=== PATIENT | female | born 2000 | race Hispanic/Latino ===

== ENCOUNTER 2019-11-09 06:42 | Emergency (ER) | payer SELFPAY ==
[2019-11-09] MEDS ORDERED: ONDANSETRON HCL 4 MG/2 ML VIAL ONE (07:34)
[2019-11-09] MEDS ORDERED: FAMOTIDINE/PF 20 MG/2 ML VIAL IV ONE (07:35)
[2019-11-09 07:43] LABS: BASOPHILS % (AUTO) 0.2 % (0.0-5.0); EOSINOPHILS % (AUTO) 0.3 % (0.0-8.0); HEMATOCRIT 42.5 % (36-48); LYMPHOCYTES % (AUTO) 17.7 % (21.0-51.0); MEAN CORPUSCULAR HEMOGLOBIN 31.2 pg (27.0-33.0); MEAN CORPUSCULAR HGB CONC 33.6 g/dL (32.0-36.0); MEAN CORPUSCULAR VOLUME 92.8 fL (80-100); MONOCYTES % (AUTO) 6.2 % (3.0-13.0); NEUTROPHILS % (AUTO) 75.3 % (40.0-77.0); PLATELET COUNT (AUTO) 331 K/uL (130-400); RED BLOOD CELL COUNT(AUTO) 4.58 MIL/uL (4.00-5.50); RED CELL DISTRIBUTION WIDTH 12.1 % (11.0-15.5); WHITE BLOOD COUNT (AUTO) 9.1 K/uL (4.8-10.8)
[2019-11-09 07:54] LABS: APPEARANCE,URINE CLEAR (CLEAR); BILIRUBIN,URINE NEGATIVE (NEGATIVE); COLOR,URINE YELLOW (YELLOW); GLUCOSE, URINE (UA) NEGATIVE (NEGATIVE); KETONES,URINE >=80 mg/dL (NEGATIVE); LEUKOCYTE ESTERASE ,URINE NEGATIVE (NEGATIVE); NITRATE,URINE NEGATIVE (NEGATIVE); OCCULT BLOOD,URINE NEGATIVE (NEGATIVE); PH,URINE 5.5 (5.0-8.0); PROTEIN,URINE NEGATIVE (NEGATIVE); UROBILINOGEN,URINE 0.2 mg/dL (0.2-1.0)
[2019-11-09 07:56] LABS: HCG,QUAL RESULT NEGATIVE (NEGATIVE)
[2019-11-09 08:02] LABS: AMPHET/METH SCREEN,URINE NEGATIVE (NEGATIVE); BARBITURATE SCREEN, URINE NEGATIVE (NEGATIVE); BENZODIAZEPINES SCREEN,URINE NEGATIVE (NEGATIVE); CANNABINOID SCREEN,URINE POSITIVE (NEGATIVE); COCAINE SCREEN,URINE NEGATIVE (NEGATIVE); OPIATE SCREEN,URINE POSITIVE (NEGATIVE); PHENCYCLIDINE SCREEN,URINE NEGATIVE (NEGATIVE); RBC,URINE 0-1 /HPF (0-1); WBC,URINE 0-1 /HPF (0-1)
[2019-11-09 08:03] LABS: BACTERIA,URINE Moderate /HPF (None Seen); MUCUS,URINE Few LPF (None Seen); SQUAMOUS EPITHELIAL CELL,UR Moderate /HPF (0-2)
[2019-11-09 08:10] LABS: CREATININE 0.8 mg/dL (0.5-1.5); POTASSIUM 3.4 mmol/L (3.5-5.1)
[2019-11-09 08:16] LABS: ALBUMIN 4.4 g/dL (3.5-5.0); BILIRUBIN,TOTAL 0.6 mg/dL (0.2-1.0); TOTAL PROTEIN, SERUM 7.9 g/dL (6.0-8.3)
[2019-11-09] MEDS ORDERED: 0.9% SODIUM CHLORIDE 1000 ML IV BAG IV ONE (09:14)
== END 2019-11-09 09:59 | disposition home or self-care (01) ==
LOC: EDH 06:42
DX: R10.9 Unspecified abdominal pain (principal); R11.2 Nausea with vomiting, unspecified
CPT/HCPCS: 36415; 80053; 80305; 81001; 81025; 82150; 83690; 85025; 96361; 96374; 96375; 99284; J2405; J3490; J7030

== ENCOUNTER 2021-10-14 09:14 | Inpatient (IN) | payer MEDICAID ==
[~2021-10-14] VITALS: Ht 149.9 cm; Wt 76.7 kg
[2021-10-14] MEDS: OXYTOCIN-LR 20 UNITS/1000 ML 1,000 ML IV SCH (10:45)
[2021-10-14 10:52] LABS: MEAN CORPUSCULAR HEMOGLOBIN 33.4 pg (27.0-33.0); MEAN CORPUSCULAR HGB CONC 35.3 g/dL (32.0-36.0); MEAN CORPUSCULAR VOLUME 94.7 fL (79-99); RED BLOOD CELL COUNT(AUTO) 3.59 MIL/uL (4.00-5.50); RED CELL DISTRIBUTION WIDTH 13.4 % (11.0-15.5); WHITE BLOOD COUNT (AUTO) 8.1 K/uL (4.8-10.8)
[2021-10-14] MEDS ORDERED: AMPICILLIN 1GM+NS 50ML 50 ML IV SCH (11:00)
[2021-10-14] MEDS ORDERED: NALOXONE HCL 0.4 MG/1 ML ML IV PRN (11:00)
[2021-10-14] MEDS ORDERED: EPHEDRINE SULFATE 50 MG/ML AMPULE IVP PRN (11:00)
[2021-10-14] MEDS ORDERED: ROPIVACAINE 0.2% 100ML VIAL 100 ML EP SCH (11:00)
[2021-10-14] MEDS ORDERED: AMPICILLIN 2GM+NS 100ML 100 ML IV SCH (11:00)
[2021-10-14] MEDS ORDERED: LACTATED RINGERS 500 ML 500 ML IV PRN (11:00)
[2021-10-14] MEDS: LACTATED RINGERS 1000ML 1,000 ML IV PRN ×2 (11:05→18:25)
[2021-10-14] MEDS: PROMETHAZINE HCL 25 MG/ML 1ML AMPULE IM PRN (21:52)
[2021-10-14] MEDS: MEPERIDINE-PF 50 MG/ML SYG IVP PRN (21:57)
[2021-10-14] MEDS ORDERED: LIDOCAINE HCL 1% 20 ML VIAL ONE (22:08)
[2021-10-14 23:14] LABS: RAPID PLASMA REAGIN NONREACTIVE (NONREACTIVE)
[2021-10-15] MEDS ORDERED: FENTANYL CITRATE PF 50 MCG/1 ML 2ML VIAL ONE (00:09)
[2021-10-15] MEDS: LACTATED RINGERS 1000ML 1,000 ML IV PRN (02:56)
[2021-10-15] MEDS ORDERED: METHYLERGONOVINE MALEATE 0.2 MG/1 ML ML ONE (10:53)
[2021-10-15] MEDS: MEPERIDINE-PF 50 MG/ML SYG IVP PRN (10:53)
[2021-10-15] MEDS: PROMETHAZINE HCL 25 MG/ML 1ML AMPULE IM PRN (10:53)
[2021-10-15] MEDS ORDERED: MISOPROSTOL 200 MCG TABLET ONE (11:10)
[2021-10-15] MEDS ORDERED: IBUPROFEN 600 MG TABLET ONE (11:14)
[2021-10-15] MEDS: IBUPROFEN 600 MG TABLET PO PRN ×2 (11:17→20:58)
[2021-10-15] MEDS ORDERED: DIPH,PERTUSS(ACELL),TET VAC/PF 0.5 ML VIAL IM PRN (11:30)
[2021-10-15] MEDS ORDERED: ACETAMINOPHEN WITH CODEINE 1 TAB TAB PO PRN (11:30)
[2021-10-15] MEDS ORDERED: ACETAMINOPHEN 325 MG TAB PO PRN (11:30)
[2021-10-15] MEDS ORDERED: MEASLES/MUMPS/RUBELLA VACCINE, LIVE 0.5 ML/VIAL SQ PRN (11:30)
[2021-10-15] MEDS ORDERED: OXYTOCIN-LR 20 UNITS/1000 ML 1,000 ML IV SCH (11:30)
[2021-10-15] MEDS ORDERED: BENZOCAINE/LANOLIN/ALOE VERA 60 ML AEROSOL TP PRN (11:30)
[2021-10-15] MEDS ORDERED: LANOLIN 30GM OINTMENT TP PRN (11:30)
[2021-10-15] MEDS ORDERED: WITCH HAZEL 1 PAD TP PRN (11:30)
[2021-10-15] MEDS: OXYTOCIN-LR 20 UNITS/1000 ML 1,000 ML IV SCH (12:00)
[2021-10-15 13:15] VITALS: BP 121/83
[2021-10-15] MEDS ORDERED: FERR-72 PO (14:26)
[2021-10-15] MEDS ORDERED: PNV#1COM14 PO (14:26)
[2021-10-15 16:00] VITALS: BP 116/75
[2021-10-15 19:24] VITALS: BP 104/71
[2021-10-15] MEDS: DOCUSATE SODIUM 100 MG CAP PO SCH (20:57)
[2021-10-15 23:30] VITALS: BP 104/71
[2021-10-16 01:08] LABS: HEPATITIS Bs ANTIGEN SCREEN P Negative (Negative)
[2021-10-16 03:31] VITALS: BP 100/69
[2021-10-16 07:09] VITALS: BP 104/72
[2021-10-16] MEDS: DOCUSATE SODIUM 100 MG CAP PO SCH (08:12)
[2021-10-16] MEDS: IBUPROFEN 600 MG TABLET PO PRN (08:13)
[2021-10-16 11:20] VITALS: BP 92/55
[2021-10-16] MEDS ORDERED: MEASLES/MUMPS/RUBELLA VACCINE, LIVE 0.5 ML/VIAL SQ ONE ×2 (14:33→15:45)
== END 2021-10-16 15:00 | disposition home or self-care (01) | DRG 560 ==
LOC: EDH 09:14 → OBSVTOIN 09:32 → LDH 09:32 → WSH 10-15 13:12
PROVIDERS: ADMIT Specialist; ATTEND Specialist
PROC: 10E0XZZ Delivery of Products of Conception, External Approach (ICD-10-PCS; principal; 2021-10-15)
PROC: 0W8NXZZ Division of Female Perineum, External Approach (ICD-10-PCS; 2021-10-15)
PROC: 10907ZC Drainage of Amniotic Fluid, Therapeutic from Products of Conception, Via Natural or Artificial Opening (ICD-10-PCS; 2021-10-15)
PROC: 3E0R3BZ Introduction of Anesthetic Agent into Spinal Canal, Percutaneous Approach (ICD-10-PCS; 2021-10-15)
PROC: 00HU33Z Insertion of Infusion Device into Spinal Canal, Percutaneous Approach (ICD-10-PCS; 2021-10-15)
PROC: 3E0234Z Introduction of Serum, Toxoid and Vaccine into Muscle, Percutaneous Approach (ICD-10-PCS; 2021-10-15)
PROC: 3E0134Z Introduction of Serum, Toxoid and Vaccine into Subcutaneous Tissue, Percutaneous Approach (ICD-10-PCS; 2021-10-15)
DX: O34.211 Maternal care for low transverse scar from previous cesarean delivery (principal); Z23 Encounter for immunization; Z37.0 Single live birth; Z3A.38 38 weeks gestation of pregnancy
CPT/HCPCS: 36415; 85027; 86592; 86701; 86850; 86900; 86901; 87340; 87390; 90707; 90715; A4314; G0378; J2175; J2210; J2550; J2590; J2795; J3010; J7120

== ENCOUNTER 2022-07-24 20:11 | Emergency (ER) | payer MEDICAID ==
[~2022-07-24] VITALS: Ht 149.9 cm; Wt 61.2 kg
[~2022-07-24 20:11] MED LIST: FERR-72 PO; PNV#1COM14 PO
[2022-07-24 21:20] LABS: APPEARANCE,URINE CLEAR (CLEAR); BILIRUBIN,URINE NEGATIVE (NEGATIVE); COLOR,URINE YELLOW (YELLOW); GLUCOSE, URINE (UA) NEGATIVE (NEGATIVE); KETONES,URINE 150 mg/dL (NEGATIVE); LEUKOCYTE ESTERASE ,URINE NEGATIVE Leu/uL (NEGATIVE); NITRATE,URINE NEGATIVE (NEGATIVE); OCCULT BLOOD,URINE NEGATIVE (NEGATIVE); PH,URINE 6.5 (5.0-8.0); PROTEIN,URINE 30 mg/dL (NEGATIVE); UROBILINOGEN,URINE 0.2 mg/dL (0.2-1.0)
[2022-07-24 21:29] LABS: BACTERIA,URINE RARE /HPF (None Seen); MUCUS,URINE FEW LPF (None Seen); SQUAMOUS EPITHELIAL CELL,UR MOD /HPF (0-2)
[2022-07-24 21:30] LABS: INFLUENZA TYPE A NEGATIVE FOR TYPE A (NEG)
[2022-07-24 21:32] LABS: INFLUENZA TYPE B NEGATIVE FOR TYPE B (NEG)
[2022-07-24 22:09] LABS: AMPHET/METH SCREEN,URINE NEGATIVE (NEGATIVE); BARBITURATE SCREEN, URINE NEGATIVE (NEGATIVE); BENZODIAZEPINES SCREEN,URINE NEGATIVE (NEGATIVE); COCAINE SCREEN,URINE NEGATIVE (NEGATIVE); PHENCYCLIDINE SCREEN,URINE NEGATIVE (NEGATIVE)
[2022-07-24 22:10] LABS: CANNABINOID SCREEN,URINE POSITIVE (NEGATIVE)
[2022-07-24] MEDS ORDERED: ACETAMINOPHEN 325 MG TAB PO ONE (22:30)
[2022-07-24 23:01] LABS: BASOPHILS % (AUTO) 0.1 % (0.0-5.0); HEMATOCRIT 36.5 % (36-48); LYMPHOCYTES % (AUTO) 5.3 % (21.0-51.0); MEAN CORPUSCULAR HEMOGLOBIN 31.9 pg (27.0-33.0); MEAN CORPUSCULAR HGB CONC 35.3 g/dL (32.0-36.0); MEAN CORPUSCULAR VOLUME 90.1 fL (79-99); MONOCYTES % (AUTO) 4.9 % (3.0-13.0); NEUTROPHILS % (AUTO) 89.4 % (40.0-77.0); PLATELET COUNT (AUTO) 236 K/uL (130-400); RED BLOOD CELL COUNT(AUTO) 4.05 MIL/uL (4.00-5.50); RED CELL DISTRIBUTION WIDTH 12.5 % (11.0-15.5); WHITE BLOOD COUNT (AUTO) 11.1 K/uL (4.8-10.8)
[2022-07-24 23:15] LABS: CREATININE 0.6 mg/dL (0.5-1.5); POTASSIUM 3.1 mmol/L (3.5-5.1)
[2022-07-24 23:20] LABS: ALBUMIN 3.5 g/dL (3.5-5.0)
[2022-07-24] MEDS ORDERED: 0.9%NACL 1000ML IV ONE (23:30)
[2022-07-24] MEDS ORDERED: 0.9%NACL 1000ML 2,500 ML IV ONE (23:30)
[2022-07-25 00:17] VITALS: BP 115/72
== END 2022-07-25 01:21 | disposition home or self-care (01) ==
LOC: EDH 20:11
DX: O98.519 Other viral diseases complicating pregnancy, unspecified trimester (principal); B34.9 Viral infection, unspecified; O99.320 Drug use complicating pregnancy, unspecified trimester; F12.10 Cannabis abuse, uncomplicated; Z20.822 Contact with and (suspected) exposure to COVID-19; Z3A.00 Weeks of gestation of pregnancy not specified
CPT/HCPCS: 99283; 96360; 87635; 80053; 80305; 85025; 87880; 87804 ×2; 36415; 81001; C9803; J7030

== ENCOUNTER 2023-01-10 01:40 | Observation (INO) | payer MEDICAID ==
[~2023-01-10] VITALS: Ht 149.9 cm; Wt 70.3 kg
[2023-01-10 02:16] LABS: APPEARANCE,URINE CLEAR (CLEAR); BILIRUBIN,URINE NEGATIVE (NEGATIVE); GLUCOSE, URINE (UA) NEGATIVE (NEGATIVE); KETONES,URINE NEGATIVE (NEGATIVE); LEUKOCYTE ESTERASE ,URINE NEGATIVE Leu/uL (NEGATIVE); NITRATE,URINE NEGATIVE (NEGATIVE); OCCULT BLOOD,URINE NEGATIVE (NEGATIVE); PH,URINE 6.5 (5.0-8.0); PROTEIN,URINE NEGATIVE (NEGATIVE); UROBILINOGEN,URINE 0.2 mg/dL (0.2-1.0)
[2023-01-10 02:26] LABS: COLOR,URINE Light-Yellow (YELLOW)
[2023-01-10 02:30] VITALS: BP 114/69
[2023-01-10] MEDS ORDERED: LACTATED RINGERS 1000ML 1,000 ML IV SCH (04:00)
== END 2023-01-10 04:10 | disposition home or self-care (01) ==
LOC: EDH 01:40 → LDH 01:41
PROVIDERS: ADMIT Obstetrics & Gynecology; ATTEND Obstetrics & Gynecology
DX: O62.9 Abnormality of forces of labor, unspecified (principal); Z3A.37 37 weeks gestation of pregnancy; Z98.891 History of uterine scar from previous surgery
CPT/HCPCS: 59025; 81003; G0378 ×2; G0379

== ENCOUNTER 2023-05-13 10:19 | Emergency (ER) | payer MEDICAID ==
[~2023-05-13] VITALS: Ht 152.4 cm; Wt 62.1 kg
[2023-05-13] MEDS ORDERED: KETOROLAC 60 MG VIAL (30MG/ML) IM ONE (13:30)
[2023-05-13] MEDS ORDERED: CEFTRIAXONE 1G VIAL IM ONE (13:30)
[2023-05-13] MEDS ORDERED: IBUP-2070 PO (13:32)
[2023-05-13] MEDS ORDERED: ACET-66 PO (13:32)
[2023-05-13] MEDS ORDERED: AMOX1TAB16 PO (13:32)
[2023-05-13 13:58] VITALS: BP 123/75
== END 2023-05-13 14:44 | disposition home or self-care (01) ==
LOC: EDH 10:19
DX: J02.9 Acute pharyngitis, unspecified (principal); Z59.7 Insufficient social insurance and welfare support; Z20.822 Contact with and (suspected) exposure to COVID-19
CPT/HCPCS: 99284; 87635; 96372 ×2; C9803; J0696; J1885

== ENCOUNTER 2024-10-29 15:58 | Emergency (ER) | payer SELFPAY ==
[~2024-10-29] VITALS: Ht 149.9 cm; Wt 59.0 kg
[~2024-10-29 15:58] MED LIST changes: +ACET-66 PO; +AMOX1TAB16 PO; +IBUP-2070 PO
[2024-10-29 17:53] VITALS: O2SAT 99
--- NOTE | 2024-10-29 18:53 | ERN ---
General Chief Complaint: Other Problems Stated Complaint: POSSIBLE MISCARRIAGE Time Seen by MD: 16:04 History of Present Illness Initial Comments 24-year-old female who comes to the , LMP 08/31/2024, presents for requesting an hCG level. Patient had bleeding on 10/22/2024 with cramping after a positive test. She was told of the time that she may be miscarrying. She has had no symptoms since. No vaginal bleeding discharge or pelvic pain or discomfort. She was here to repeat an hCG level to make sure that it was gone away. Allergies: Coded Allergies: No Known Allergies (Unverified Allergy, Unknown, 10/14/21) Home Meds Active Scripts Ibuprofen (Ibuprofen) 600 Mg Tablet, 600 MG PO Q6H PRN for PAIN, #15 TAB Prov:ELISHA MCCULLOUGH 05/13/23 Acetaminophen (Acetaminophen) 500 Mg Tablet, 500 MG PO Q4PRN for 5 Days, #15 TAB Prov:ELISHA MCCULLOUGH 05/13/23 Amoxicillin/Potassium Clav (Amox Tr-K Clv 875-125 mg Tab) 1 Each Tablet, 1 EACH PO BID for 10 Days, #20 TAB Prov:ELISHA MCCULLOUGH 05/13/23 Reported Medications Ferrous Sulfate (Ferrous Sulfate) 325 Mg Tablet, 325 MG PO DAILYLUNCH, TAB 10/15/21 Pnv#75/Iron Fum/FA/Om3/Dha/Epa (One A Day Dha Pack) 1 Each Combo..pkg, 1 EACH PO DAILYLUNCH, COMB.PKG 10/15/21 Past Medical History Past Medical History: No Pertinent History Past Surgical History: None Family History Family History: HTN Social History Social History: Negative Female( History) LMP: Aug 31, 2024 : 3 Para: 2 Aborts: 0 ROS Dictation CONSTITUTIONAL: No chills, no fever, no weakness, no diaphoresis, no malaise. HEAD/FACE: No signs of trauma. EENT: No eye pain, no blurred vision, no tearing, no double vision, no ear pain, no ear discharge, no nose pain, no nasal congestion, no throat pain, no throat swelling, no mouth pain. RESPIRATORY: No cough, no orthopnea, no SOB, no stridor, no wheezing. CARDIOVASCULAR: No chest pain, no edema, no palpitations, no syncope. GASTROINTESTINAL/ABDOMINAL: No abdominal pain, no constipation, no diarrhea, no nausea, no vomiting. GENITOURINARY: No abnormal discharge, no dysuria, no frequent urination, no hematuria. No complaints of pain in the genitals. MUSCULOSKELETAL: No back pain, no gout, no joint pain, no joint swelling, no muscle pain, no muscle stiffness, no neck pain. INTEGUMENTARY: No change in color, no change in hair/nails, no dryness, no lesion, no lumps, no rash. NEUROLOGICAL/PSYCH: No anxiety, not depressed, no emotional problem, no headache, no numbness, no pre-existing deficit, no history of seizures, no tr emors, no weakness. HEMATOLOGIC/LYMPHATIC: Not anemic, no history of blood clots, no apparent bleeding, no bruising, glands not swollen. All Systems Negative, Except as Noted. Physical Exam Physical Exam Dictation VITAL SIGNS: Reviewed. GENERAL APPEARANCE: Alert, oriented x3, no acute distress. HEAD AND FACE: Non-traumatic. EYES: PERRL, pink conjunctivas, eyelid no trauma, anterior chamber clear. EARS: Pinnas intact and no signs of trauma or erythema. Ear canals clear and no discharge. TMs no erythema. NOSE: No discharge, no bleeding. OROPHARYNX: Mouth normal, teeth no caries, tongue pink. Pharynx clear, no erythema. Tonsils no exudates, no abscesses noted. Mucous membrane moist. NECK: Supple, non-tender, no thyromegaly, no masses, no JVD, no bruits. BREAST: Deferred. CHEST: No tenderness, no crepitus, no paradoxical movement, no retractions. LUNGS: Clear, well-ventilated, symmetric, no rales, no wheezing, no rhonchi, no stridor, good breath sounds bilaterally. HEART: Regular rate, regular rhythm, no murmur, no gallops. VASCULAR: No peripheral edema. ABDOMEN: Soft, positive bowel sounds, nondistended, no guarding, nontender, no rebound, no masses no hepatomegaly, no splenomegaly, no Stinson's sign, no h ernias. RECTAL: Deferred. GENITAL: Deferred. NEUROLOGICAL: Normal speech, gross motor function intact, gross sensory functi on intact. MUSCULOSKELETAL: Neck nontender, full range of motion, back nontender, full range of motion. EXTREMITIES: Nontender, full range of motion. SKIN: Color pink, dry, no turgor, no rash, no lacerations, no abrasions, no contusions. LYMPHATICS: Deferred. Results Laboratory and Microbiology Lab and Micro Result Laboratory Tests Test 10/29/24 16:24 Human Chorionic Gonadotropin, Quant 1 mIU/mL (0-5) MDM CC: Request for beta hCG Historian: Patient No comorbidities Patient was concerned that she miscarried She is asymptomatic Your vital signs and stable The beta hCG is a one She had a negative home test Unlikely need this time. No indication for any advanced imaging or any other procedures. We will DC. ED Course Orders Procedure Category Date Status Time Hcg,Quantitative LAB 10/29/24 Complete 16:08 Vital Signs Date Time Temp Pulse Resp B/P (MAP) Pulse Ox O2 Delivery O2 Flow Rate FiO2 10/29/24 18:53 98.4 74 18 110/65 Room Air* 0 21 10/29/24 17:53 74 18 117/68 99 Room Air* 0 21 10/29/24 16:02 98.4 77 20 131/82 DX & DISP Disposition: Discharge Departure Impression: Primary Impression: Miscarriage Condition: Stable Additional Instructions: Your beta hCG level is one. As we discussed, you likely miscarried. Please follow up with your primary doctor as needed. Referrals: HATTIE STEVENSON MD (PCP) ABHIJIT BIRD DO Oct 29, 2024 18:53
[2024-10-29 19:20] VITALS: BP 110/65; PULSE 74; RESP 18; TEMP 98.4
== END 2024-10-29 19:50 | disposition home or self-care (01) ==
LOC: EDH 15:58
DX: O03.9 Complete or unspecified spontaneous abortion without complication (principal); R10.2 Pelvic and perineal pain; Z79.899 Other long term (current) drug therapy
CPT/HCPCS: 36415; 84702; 99283

== ENCOUNTER 2025-10-08 19:14 | Emergency (ER) | payer MEDICAID ==
[~2025-10-08] VITALS: Ht 149.9 cm; Wt 55.8 kg
--- NOTE | 2025-10-08 19:21 | NUR ---
UA CUP PROVIDED
--- NOTE | 2025-10-08 19:36 | ERN ---
ED Note History of Present Illness Stated Complaint: VAGINAL BLEEDING Chief Complaint: Vaginal Bleeding Time Seen by MD: 19:21 Time Seen by Midlevel: 19:35 Dictation: Ms Maravilla is a 25-year-old female with no reported chronic health issues who presented to the emergency department this evening for evaluation of vaginal bleeding. She is [id number] with LMP 08/14/2025 She states that she had a positive home test results two weeks ago. She states that at 1830 she developed lower abdominal/low back pain which she rates 4/10 and had dark red vaginal bleeding with small clots. She states she has used one pad. Last week she states she had frequent urination. She denies fever, chills, shortness of breath, cough, chest pain, palpitations, edema, nausea, vomiting, hematemesis, constipation, diarrhea, melena, hematochezia, flank pain, headache, dizziness, or focal weakness/paresthesia Allergies: Coded Allergies: No Known Allergies (Unverified Allergy, Unknown, 10/14/21) Home Meds Active Scripts Cephalexin (Cephalexin) 500 Mg Tablet, 1 TAB PO BID for 7 Days, #14 TAB 0 Refills Prov:HEMAL COLBY TEXTILE COLORIST FORMULATOR 10/08/25 Ibuprofen (Ibuprofen) 600 Mg Tablet, 600 MG PO Q6H PRN for PAIN, #15 TAB Prov:ELISHA MCCULLOUGH 05/13/23 Acetaminophen (Acetaminophen) 500 Mg Tablet, 500 MG PO Q4PRN for 5 Days, #15 TAB Prov:ELISHA MCCULLOUGH 05/13/23 Amoxicillin/Potassium Clav (Amox Tr-K Clv 875-125 mg Tab) 1 Each Tablet, 1 EACH PO BID for 10 Days, #20 TAB Prov:ELISHA MCCULLOUGH 05/13/23 Reported Medications Ferrous Sulfate (Ferrous Sulfate) 325 Mg Tablet, 325 MG PO DAILYLUNCH, TAB 10/15/21 Pnv#75/Iron Fum/FA/Om3/Dha/Epa (One A Day Dha Pack) 1 Each Combo..pkg, 1 EACH PO DAILYLUNCH, COMB.PKG 10/15/21 Past Medical History Past Medical History: No Pertinent History Surgical History: Family History: HTN Social History: Negative LMP: Aug 14, 2025 : 5 Para: 3 Aborts: 1 RN Note Reviewed/Agreed w/PFSH: Yes Review of System Dictation REVIEW OF SYSTEMS: CONSTITUTIONAL: Patient denies fevers, chills, sweats and weight changes. EYES: Patient denies any visual symptoms. EARS, NOSE, AND THROAT: No difficulties with hearing. No symptoms of rhinitis or sore throat. CARDIOVASCULAR: Patient denies chest pains, palpitations, orthopnea and paroxysmal nocturnal dyspnea. RESPIRATORY: No dyspnea on exertion, no wheezing or cough. GI: No nausea, vomiting, diarrhea, constipation, abdominal pain, hematochezia or melena. Reports lower abdominal cramping : No urinary hesitancy or dribbling. No nocturia. No flank pain. No abnormal urethral discharge. Reports bright dark red vaginal bleeding with small clots that started about 20 minutes prior to coming to the hospital. Denies flank pain. MUSCULOSKELETAL: No myalgias or arthralgias. NEUROLOGIC: No chronic headaches, no seizures. Patient denies numbness, tingling or weakness. PSYCHIATRIC: Patient denies problems with mood disturbance. No problems with anxiety. ENDOCRINE: No excessive urination or excessive thirst. DERMATOLOGIC: Patient denies any rashes or skin changes. Initial Vital Sign VS Vital Signs Date Time Temp Pulse Resp B/P (MAP) Pulse Ox O2 Delivery O2 Flow Rate FiO2 10/08/25 19:18 98.4 98 20 140/81 99 Room Air Physical Exam Dictation Vital signs: Reviewed. Afebrile Constitutional: No acute distress. Slightly anxious Head/Face: Normocephalic, atraumatic. Eyes: Periorbital areas with no swelling, redness, or edema. Lids and lashes are normal. Conjunctival injection is absent. Sclera anicteric. Pupils equal, round, reactive to light. ENT: Pinnas intact and no signs of trauma or erythema. Ear canals clear and no discharge. TMs no erythema. No nasal discharge or bleeding noted. Oropharynx with no exudate, redness, swelling, masses, exudates, or evidence of obstruction. Uvula midline. Mucous membranes moist. Neck: Trachea midline, no masses palpated, and no cervical lymphadenopathy. No swelling. Supple, full range of motion. Chest/Axilla: No tenderness, no crepitus, no paradoxical movement, no retractions. Cardiovascular: Regular rate, regular rhythm, no murmur, no gallops. Symmetric pulses. No peripheral edema. Normotensive Respiratory: Respirations even and unlabored. Lung sounds clear; no wheezes, rales or rhonchi. Room air SpO2 99% Gastrointestinal: Inspection is normal. No distention is appreciated. Bowel sounds are normal. No mass or organomegaly . There is no tenderness. No rebound. No rigidity. No voluntary or involuntary guarding. No Stinson's sign. : Negative CVA tenderness bilaterally Neurological: Normal speech, gross motor function intact, gross sensory function intact. No focal weakness/Paresthesia. Musculoskeletal/Extremities: All extremities have full range of motion, no pain or tenderness on palpation. Symmetric pulses. Integumentary: Intact. Skin is normal color, warm and dry. Cap refill less than 3 seconds. Results (Laboratory/Radiology) Laboratory/Radiology Laboratory Tests Test 10/08/25 19:41 White Blood Count 9.9 K/uL (4.8-10.8) Red Blood Count 4.29 MIL/uL (4.00-5.50) Hemoglobin 14.1 g/dL (12.0-16.0) Hematocrit 41.2 % (36-48) Mean Corpuscular Volume 96.0 fL (79-99) Mean Corpuscular Hemoglobin 32.9 pg (27.0-33.0) Mean Corpuscular Hemoglobin Concent 34.2 g/dL (32.0-36.0) Red Cell Distribution Width 12.8 % (11.0-15.5) Platelet Count 299 K/uL (130-400) Mean Platelet Volume 9.6 fL (7.5-10.5) Immature Granulocyte % (Auto) 0.4 % (0-1) Neutrophils (%) (Auto) 80.6 % (40.0-77.0) H Lymphocytes (%) (Auto) 12.1 % (21.0-51.0) L Monocytes (%) (Auto) 6.1 % (3.0-13.0) Eosinophils (%) (Auto) 0.4 % (0.0-8.0) Basophils (%) (Auto) 0.4 % (0.0-5.0) Neutrophils # (Auto) 8.0 K/uL (1.8-7.7) H Lymphocytes # (Auto) 1.2 K/uL (1.0-4.8) Monocytes # (Auto) 0.6 K/uL (0.1-1.0) Eosinophils # (Auto) 0.04 K/uL (0.00-0.70) Basophils # (Auto) 0.04 K/uL (0.00-0.20) Absolute Immature Granulocyte (auto 0.04 K/uL (0-1) Nucleated Red Blood Cells 0.0 % (0.0-0.19) Urine Color YELLOW (YELLOW) Urine Appearance CLEAR (CLEAR) Urine pH 6.0 (5.0-8.0) Urine Specific [place]son 1.032 (1.001-1.031) Urine Protein 20 mg/dL (NEGATIVE) H Urine Glucose (UA) NEGATIVE mg/dL (NEGATIVE) Urine Ketones 10 mg/dL (NEGATIVE) H Urine Occult Blood LARGE (NEGATIVE) H Urine Nitrate NEGATIVE (NEGATIVE) Urine Bilirubin NEGATIVE mg/dL (NEGATIVE) Urine Urobilinogen 0.2 mg/dL (0.2-1.0) Urine Leukocyte Esterase 25 Astrid/uL (NEGATIVE) H Urine RBC TNTC /HPF (0-1) H Urine WBC 2-5 /HPF (0-1) H Urine Squamous Epithelial Cells FEW /HPF (0-2) Urine Bacteria FEW /HPF (None Seen) Sodium Level 142 mmol/L (136-145) Potassium Level 3.7 mmol/L (3.5-5.1) Chloride Level 104 mmol/L (101-111) Carbon Dioxide Level 29 mmol/L (21-32) Blood Urea Nitrogen 11 mg/dL (7-18) Creatinine 0.8 mg/dL (0.5-1.0) Glomerular Filtration Rate Calc 104 mL/min (>90) Random Glucose 113 mg/dL (70-105) H Total Calcium 9.3 mg/dL (8.5-10.1) Human Chorionic Gonadotropin, Quant 11 mIU/mL (0-5) H Labs Reviewed?: Yes ED Course ED Course Orders Procedure Category Date Status Time Cbc With Differential LAB 10/08/25 Complete 19:32 Basic Metabolic Panel LAB 10/08/25 Complete 19:32 Urinalysis Profile LAB 10/08/25 Complete 19:32 Hcg,Quantitative LAB 10/08/25 Complete 19:32 Us Ob <14 Weeks US 10/08/25 Resulted 19:33 Vital Signs Date Time Temp Pulse Resp B/P (MAP) Pulse Ox O2 Delivery O2 Flow Rate FiO2 10/08/25 19:18 98.4 98 20 140/81 99 Room Air Laboratory findings as noted below. No elevation of WBCs H&H are stable. Quantitative hCG is very low. UA positive for blood (as expected), leukocyte esterase, and UWBC 2-3;UCX pending. The ultrasound shows no intrauterine . Ovaries unremarkable. Uterus is normal size 7.5 by 2.7 x 3.9 cm, retroverted. The endometrium 9 mm. She has vaginal bleeding in early with beta HCG 11 and no intrauterine seen. These findings are consistent with of unknown location. While in the ED she received initial dose cephalexin. Patient was counseled regarding of unknown location, need for repeat quantitative hCG in 48 hours, and ectopic warning signs. Patient verbalized understanding. Cephalexin prescribed for suspected UTI; medication safety in discussed. Patient discharged in stable condition with suspected UTI treated with cephalexin for seven days and of unknown location. Strict ectopic precautions and follow up instructions reviewed. Patient verbalized understanding. Medical Decision Making MDM MDM: Differential diagnosis: of unknown location, very early intrauterine , early loss, UTI, anemia Rationale: Tests considered and ordered secondary to shared decision making include: Lab, ultrasound Previous outside records reviewed: Old ER visits. Risk of complication and/or morbidity or mortality of patient management: None Medications-Per medication reconciliation Need for hospitalization: Patient does not meet criteria for hospitalization. Need for emergency major/minor surgery: No There are no social concerns with this patient. Prescription drug management: OTC Tylenol, cephalexin Prescriptions will include symptomatic care Patient's prior external medical records from other ER visits were reviewed by me as indicated. Prior testing and results from previous visits were reviewed. Prior tests were taken into account with medical decision making and resource utilization, independent historian/historians were used to obtain complete medical history. I independently interpreted the test that were performed, results were reviewed by me and considered findings on radiology if ordered. Medical management and examination interpretation discussions were had by me with other qualified healthcare professionals as indicated for the patient's care. DX & DISP Disposition: Discharge Departure Impression: Primary Impression: , location unknown Additional Impressions: Vaginal bleeding affecting early , Urinary frequency, Suspected urinary tract infection Condition: Stable Scripts Cephalexin (Cephalexin) 500 Mg Tablet 1 TAB PO BID for 7 Days, #14 TAB 0 Refills Prov: HEMAL COLBY 10/08/25 Additional Instructions: Your hormone is very low (11). At this level, it is too early to see a on ultrasound, which is expected. The ultrasound did not show signs of an ectopic , and your ovaries appear normal. Your urine test shows signs of a possible urinary tract infection. At this time, and is not possible to tell if this is an early , and early miscarriage, or less commonly a outside of the uterus (ectopic). Close follow up is very important. You will need to continue the cephalexin twice daily for seven days. This antibiotic is safe and early . You may take Tylenol for pain or cramping. No ibuprofen, naproxen, or other NSAIDs. Avoid alcohol while taking antibiotics. Drink plenty of fluids. Rest as needed. Avoid strenuous activity if bleeding or cramping worsens. You must have a repeat blood hormone test in 48 hours. Follow up with your computer systems technology instructor or primary care provider as soon as possible. Further testing will determine whether the is continuing normally. Return to the emergency department immediately if you have: S evere/worsening lower abdominal or pelvic pain, shoulder pain, dizziness/lightheadedness/fainting, heavy vaginal bleeding (soaking one pad per hour), fever/chills, worsening urinary symptoms despite antibiotics. Referrals: SELF,REFERRAL (PCP) Time of Disposition: 21:21 HEMAL COLBY Oct 08, 2025 19:36
[2025-10-08 19:55] LABS: IMMATURE GRANULOCYTE ABSOLUTE 0.04 K/uL (0-1); NUCLEATED RED BLOOD CELLS 0.0 % (0.0-0.19); PLATELET COUNT (AUTO) 299 K/uL (130-400); RED BLOOD CELL COUNT(AUTO) 4.29 MIL/uL (4.00-5.50); RED CELL DISTRIBUTION WIDTH 12.8 % (11.0-15.5); WHITE BLOOD COUNT (AUTO) 9.9 K/uL (4.8-10.8)
[2025-10-08 20:05] LABS: CREATININE 0.8 mg/dL (0.5-1.0); GLOMERULAR FILTR. RATE CALC 104.0 mL/min (>90); GLUCOSE,RANDOM 113.0 mg/dL (70-105); SODIUM SERUM 142.0 mmol/L (136-145); UREA NITROGEN, BLOOD 11.0 mg/dL (7-18)
[2025-10-08 20:17] LABS: APPEARANCE,URINE CLEAR (CLEAR); GLUCOSE, URINE (UA) NEGATIVE (NEGATIVE); HCG,QUANTITATIVE 11.0 mIU/mL (0-5); LEUKOCYTE ESTERASE ,URINE 25 Leu/uL (NEGATIVE); NITRATE,URINE NEGATIVE (NEGATIVE); OCCULT BLOOD,URINE LARGE (NEGATIVE)
[2025-10-08 20:18] LABS: ADD UA MICROSCOPIC YES
[2025-10-08 20:23] LABS: SQUAMOUS EPITHELIAL CELL,UR FEW /HPF (0-2)
--- NOTE | 2025-10-08 21:21 | HMCIMG ---
EXAMINATION: OB ULTRASOUND LESS THAN 14 WEEKS. CLINICAL HISTORY: Amenorrhea. Vaginal Bleeding. Beta hcG is 11. COMPARISON: None. TECHNIQUE: Grayscale and color ultrasound images were obtained utilizing a transabdominal transducer. FINDINGS: LMP: 08/14/2025, 7 weeks and 6 days. BHARGAV: 05/21/2026. The uterus is retroverted, normal in caliber, and measures 7.5 x 2.7 x 3.9 cm in the craniocaudal, AP, and transverse dimensions, respectively. The endometrium measures approximately 0.9 cm. There is no intrauterine gestation sac seen at present. Cervix appears normal. The right ovary is normal in caliber and measures 2.3 x 1.4 x 1.6 cm. The left ovary is normal in caliber and measures 2.3 x 2.0 x 1.5 cm. There is no free fluid in the cul-de-sac. IMPRESSION: No significant abnormality. No intrauterine gestation sac at present. Recommend serial quantitative beta hcG correlation and follow-up ultrasound. /[facility]
[2025-10-08 23:04] VITALS: BP 138/80; PULSE 68; RESP 19; TEMP 98.4; O2SAT 99
== END 2025-10-08 23:15 | disposition home or self-care (01) ==
LOC: EDH 19:14
DX: O20.9 Hemorrhage in early pregnancy, unspecified (principal); O26.891 Other specified pregnancy related conditions, first trimester; R35.0 Frequency of micturition; Z3A.01 Less than 8 weeks gestation of pregnancy; Z79.899 Other long term (current) drug therapy; Z98.890 Other specified postprocedural states
CPT/HCPCS: 36415; 76801; 80048; 81001; 84702; 85025; 99284

== ENCOUNTER 2025-10-10 15:59 | Emergency (ER) | payer MEDICAID ==
[~2025-10-10] VITALS: Ht 149.9 cm; Wt 67.4 kg
[~2025-10-10 15:59] MED LIST changes: +CEPH500T PO; +IBUP-1492 PO; -IBUP-2070 PO
[2025-10-10 16:25] LABS: IMMATURE GRANULOCYTE ABSOLUTE 0.02 K/uL (0-1); NUCLEATED RED BLOOD CELLS 0.0 % (0.0-0.19); PLATELET COUNT (AUTO) 296 K/uL (130-400); RED BLOOD CELL COUNT(AUTO) 4.38 MIL/uL (4.00-5.50); RED CELL DISTRIBUTION WIDTH 12.8 % (11.0-15.5); WHITE BLOOD COUNT (AUTO) 7.5 K/uL (4.8-10.8)
[2025-10-10 16:27] LABS: APPEARANCE,URINE CLEAR (CLEAR); GLUCOSE, URINE (UA) NEGATIVE (NEGATIVE); LEUKOCYTE ESTERASE ,URINE NEGATIVE Leu/uL (NEGATIVE); NITRATE,URINE NEGATIVE (NEGATIVE); OCCULT BLOOD,URINE NEGATIVE (NEGATIVE)
[2025-10-10 16:28] LABS: ADD UA MICROSCOPIC NO
[2025-10-10 16:29] LABS: HCG,QUALITATIVE URINE NEGATIVE (NEGATIVE)
[2025-10-10 16:34] LABS: CREATININE 0.7 mg/dL (0.5-1.0); GLOMERULAR FILTR. RATE CALC 121.0 mL/min (>90); GLUCOSE,RANDOM 97.0 mg/dL (70-105); SODIUM SERUM 142.0 mmol/L (136-145); UREA NITROGEN, BLOOD 11.0 mg/dL (7-18)
[2025-10-10 16:44] LABS: ASPARTATE AMINOTRANSFERASE 12.0 U/L (10-37); HCG,QUANTITATIVE 2.0 mIU/mL (0-5); TOTAL PROTEIN, SERUM 7.3 g/dL (6.0-8.3)
--- NOTE | 2025-10-10 17:29 | ERN ---
ED Note History of Present Illness Stated Complaint: VAGINAL SPOTTING Chief Complaint: Vaginal Bleeding Time Seen by MD: 16:02 Dictation: 25-year-old female presenting to the emergency department for vaginal spotting patient was here yesterday and had a hCG of 11, patient reports she did pass some blood clots she is Allergies: Coded Allergies: No Known Allergies (Unverified Allergy, Unknown, 10/14/21) Home Meds Active Scripts Cephalexin (Cephalexin) 500 Mg Tablet, 1 TAB PO BID for 7 Days, #14 TAB 0 Refills Prov:HEMAL COLBY PM TECHNICIAN 10/08/25 Ibuprofen (Ibuprofen) 600 Mg Tablet, 600 MG PO Q6H PRN for PAIN, #15 TAB Prov:ELISHA MCCULLOUGH 05/13/23 Acetaminophen (Acetaminophen) 500 Mg Tablet, 500 MG PO Q4PRN for 5 Days, #15 TAB Prov:ELISHA MCCULLOUGH 05/13/23 Amoxicillin/Potassium Clav (Amox Tr-K Clv 875-125 mg Tab) 1 Each Tablet, 1 EACH PO BID for 10 Days, #20 TAB Prov:ELISHA MCCULLOUGH 05/13/23 Reported Medications Ferrous Sulfate (Ferrous Sulfate) 325 Mg Tablet, 325 MG PO DAILYLUNCH, TAB 10/15/21 Pnv#75/Iron Fum/FA/Om3/Dha/Epa (One A Day Dha Pack) 1 Each Combo..pkg, 1 EACH PO DAILYLUNCH, COMB.PKG 10/15/21 Past Medical History Past Medical History: No Pertinent History Surgical History: Family History: HTN Social History: Negative LMP: Aug 14, 2025 : 5 Para: 3 Aborts: 1 Review of System Dictation Constitutional: Negative for fever,chills, and weight loss Eyes: Negative for injury, pain,redness, and discharge ENT: Negative for injury,pain or swelling Cardiovascular: Negative for chest pain, palpitations, and edema Respiratory: Negative for shortness of breath, cough, and wheezing, Abdomen/GI: Negative for abdominal pain, nausea, vomiting, diarrhea, and constipation Back: Negative for injury and pain : Per HPI MS/Extremity: Negative for injury and deformity Skin: Negative for rash, and discoloration Neuro: Negative for headache, weakness, numbness, tingling, and seizure Psych: Negative for suicide ideation, homicidal ideation, and hallucinations Initial Vital Sign VS Vital Signs Date Time Temp Pulse Resp B/P (MAP) Pulse Ox O2 Delivery O2 Flow Rate FiO2 10/10/25 16:01 98.4 84 18 117/81 99 Room Air 0 Physical Exam Dictation General: awake, alert, NAD Head/Face: Normocephalic, atraumatic Eyes: PERRL, EOMI, vision at baseline ENT: oral cavity clear, TMs clear, no signs of infection Neck: Trachea midline, supple, no nuchal rigidity Cardiovascular: RRR, normal S1/S2, No MRGs, no JVD Respiratory: CTAB, no respiratory distress, No rales or wheezes Abdomen: Soft, non-tender, non-distended, normal bowel sounds, no guarding or rebound. Skin: Warm, dry, normal turgor, no rash MS/Extremity: Pulses equal, no cyanosis, neurovascular intact, FROM Neuro: COAx4, GCS 15, strength 5/5, CN 2-12 intact, normal cerebellar exam, normal gait, Psych: Normal behavior, mood, and affect normal Results (Laboratory/Radiology) Laboratory/Radiology Laboratory Tests Test 10/10/25 16:10 10/10/25 16:14 Urine Color LIGHT-YELLOW (YELLOW) Urine Appearance CLEAR (CLEAR) Urine pH 6.0 (5.0-8.0) Urine Specific [place] 1.016 (1.001-1.031) Urine Protein NEGATIVE mg/dL (NEGATIVE) Urine Glucose (UA) NEGATIVE mg/dL (NEGATIVE) Urine Ketones NEGATIVE mg/dL (NEGATIVE) Urine Occult Blood NEGATIVE (NEGATIVE) Urine Nitrate NEGATIVE (NEGATIVE) Urine Bilirubin NEGATIVE mg/dL (NEGATIVE) Urine Urobilinogen 0.2 mg/dL (0.2-1.0) Urine Leukocyte Esterase NEGATIVE [place]/uL Urine HCG, Qualitative NEGATIVE (NEGATIVE) White Blood Count 7.5 K/uL (4.8-10.8) Red Blood Count 4.38 MIL/uL (4.00-5.50) Hemoglobin 14.2 g/dL (12.0-16.0) Hematocrit 42.3 % (36-48) Mean Corpuscular Volume 96.6 fL (79-99) Mean Corpuscular Hemoglobin 32.4 pg (27.0-33.0) Mean Corpuscular Hemoglobin Concent 33.6 g/dL (32.0-36.0) Red Cell Distribution Width 12.8 % (11.0-15.5) Platelet Count 296 K/uL (130-400) Mean Platelet Volume 9.6 fL (7.5-10.5) Immature Granulocyte % (Auto) 0.3 % (0-1) Neutrophils (%) (Auto) 68.8 % (40.0-77.0) Lymphocytes (%) (Auto) 22.0 % (21.0-51.0) Monocytes (%) (Auto) 7.4 % (3.0-13.0) Eosinophils (%) (Auto) 1.2 % (0.0-8.0) Basophils (%) (Auto) 0.3 % (0.0-5.0) Neutrophils # (Auto) 5.1 K/uL (1.8-7.7) Lymphocytes # (Auto) 1.6 K/uL (1.0-4.8) Monocytes # (Auto) 0.6 K/uL (0.1-1.0) Eosinophils # (Auto) 0.09 K/uL (0.00-0.70) Basophils # (Auto) 0.02 K/uL (0.00-0.20) Absolute Immature Granulocyte (auto 0.02 K/uL (0-1) Nucleated Red Blood Cells 0.0 % (0.0-0.19) Sodium Level 142 mmol/L (136-145) Potassium Level 3.6 mmol/L (3.5-5.1) Chloride Level 104 mmol/L (101-111) Carbon Dioxide Level 29 mmol/L (21-32) Blood Urea Nitrogen 11 mg/dL (7-18) Creatinine 0.7 mg/dL (0.5-1.0) Glomerular Filtration Rate Calc 121 mL/min (>90) Random Glucose 97 mg/dL (70-105) Total Calcium 8.9 mg/dL (8.5-10.1) Total Bilirubin 0.3 mg/dL (0.2-1.0) Direct Bilirubin 0.1 mg/dL (0.0-0.3) Aspartate Amino Transf (AST/SGOT) 12 U/L (10-37) Alanine Aminotransferase (ALT/SGPT) 16 U/L (12-78) Alkaline Phosphatase 59 U/L (50-136) Total Protein 7.3 g/dL (6.0-8.3) Albumin 4.2 g/dL (3.5-5.0) Human Chorionic Gonadotropin, Quant 2 mIU/mL (0-5) ED Course ED Course Orders Procedure Category Date Status Time Hcg,Quantitative LAB 10/10/25 Complete 16: Type And Screen BBK 10/10/25 In Process 16:02 Basic Metabolic Panel LAB 10/10/25 Complete 16:02 Cbc With Differential LAB 10/10/25 Complete 16: Hepatic Function Panel LAB 10/10/25 Complete 16:02 Urinalysis Profile LAB 10/10/25 Complete 16:02 ,Urine Test LAB 10/10/25 Complete 16: Vital Signs Date Time Temp Pulse Resp B/P (MAP) Pulse Ox O2 Delivery O2 Flow Rate FiO2 10/10/25 16:01 98.4 84 18 117/81 99 Room Air 0 Medical Decision Making MDM MDM: Differential diagnosis: Rationale: Tests considered and ordered secondary to shared decision making include: Previous outside records reviewed: Old ER visits. Risk of complication and/or morbidity or mortality of patient management: None Medications-Per medication reconciliation Need for hospitalization: Patient does not meet criteria for hospitalization. Need for emergency major/minor surgery: No There are no social concerns with this patient. Prescription drug management Prescriptions will include symptomatic care Patient's prior external medical records from other ER visits were reviewed by me as indicated. Prior testing and results from previous visits were reviewed. Prior tests were taken into account with medical decision making and resource utilization, independent historian/historians were used to obtain complete medical history. I independently interpreted the test that were performed, results were reviewed by me and considered findings on radiology if ordered. Medical management and examination interpretation discussions were had by me with other qualified healthcare professionals as indicated for the patient's care. 25-year-old female with complete miscarriage, hCG now two, urine hCG negative stable for discharge and advised to follow up with her OB doctor DX & DISP Disposition: Discharge Departure Impression: Primary Impression: Miscarriage Condition: Stable Referrals: SELF,REFERRAL (PCP) PRAVIN ANAYA MD Oct 10, 2025 17:29
[2025-10-10 17:30] VITALS: BP 146/94; PULSE 76; RESP 17; TEMP 98.3; O2SAT 99
== END 2025-10-10 17:41 | disposition home or self-care (01) ==
LOC: EDH 15:59
DX: O03.9 Complete or unspecified spontaneous abortion without complication (principal); I10 Essential (primary) hypertension; Z79.899 Other long term (current) drug therapy
CPT/HCPCS: 36415; 80048; 80076; 81003; 81025; 84702; 85025; 86850; 86900; 86901; 99283